=== PATIENT | female | born 1940 | race Caucasian/White ===

== ENCOUNTER 2017-08-25 10:49 | Emergency (ER) | payer OTHER ==
[~2017-08-25] VITALS: Ht 167.6 cm; Wt 76.5 kg
[2017-08-25] MEDS ORDERED: PERCOCET 5/31 TABLET PO (14:21)
[2017-08-25 14:53] VITALS: BP 138/96
== END 2017-08-25 15:01 | disposition home or self-care (01) ==
LOC: EME 10:49
PROC: 0RSJXZZ Reposition Right Shoulder Joint, External Approach (ICD-10-PCS; principal; 2017-08-25)
DX: S43.014A Anterior dislocation of right humerus, initial encounter (principal); S42.291A Other displaced fracture of upper end of right humerus, initial encounter for closed fracture; S42.251A Displaced fracture of greater tuberosity of right humerus, initial encounter for closed fracture; M79.601 Pain in right arm; M79.641 Pain in right hand; W01.0XXA Fall on same level from slipping, tripping and stumbling without subsequent striking against object, initial encounter; M85.841 Other specified disorders of bone density and structure, right hand; Z88.5 Allergy status to narcotic agent
CPT/HCPCS: 73030; 73060; 73130; 99281; 99285; J3010